=== PATIENT | female | born 1995 | race Two or more races ===

== ENCOUNTER 2023-11-14 19:19 | Inpatient (IN) | payer BC, OTHER ==
[~2023-11-14] VITALS: Ht 160 cm; Wt 93.4 kg
[2023-11-14] MEDS: cefTRIAXone 1GM/50ML D5W 50 ML IV ONE (00:45)
[2023-11-14] MEDS: MORPHINE SULFATE 4 MG/ML SYR/VIAL IV ONE ×2 (19:45→23:54)
[2023-11-14] MEDS: SODIUM CHLORIDE 0.9% 1,000 ML IVB ONE (19:45)
[2023-11-14] MEDS: ONDANSETRON HCL 4 MG/2 ML VIAL IV ONE (19:45)
[2023-11-14 20:19] LABS: Urine Bacteria None Seen /hpf (None Seen)
[2023-11-14 20:25] LABS: Basophils # (auto) 0.1 10 ^3/uL (0-0.2); Basophils % (auto) 0.5 % (0.0-2.0); Eosinophils # (auto) 0.1 10 ^3/uL (0-0.8); Eosinophils % (auto) 0.8 % (0.0-7.0); Hematocrit 44.9 % (36.0-46.0); Hemoglobin 15.4 g/dL (12.2-16.2); Lymphocytes # (auto) 1.3 10 ^3/uL (0.4-5.4); Lymphocytes % (auto) 9.2 % (10.0-50.0); Mean Corpuscular Hemoglobin 27.9 pg (28.0-32.0); Mean Corpuscular Hgb Conc. 34.4 g/dL (32.0-36.0); Mean Corpuscular Volume 81.2 fL (80.0-100.0); Monocytes # (auto) 0.5 10 ^3/uL (0-1.3); Monocytes % (auto) 3.6 % (0.0-12.0); Neutrophils % (auto) 85.9 % (37.0-80.0); Nucleated Red Blood Cells % 0.1 %; Red Blood Cells 5.53 10^6/uL (4.0-5.20); Red Cell Distribution Width 13.8 % (11.8-14.3)
[2023-11-14 20:32] LABS: Chloride 107 mmol/L (98-107); Potassium 3.8 mmol/L (3.5-5.1); Sodium 138 mmol/L (136-145)
[2023-11-14 20:32] LABS: Urine Blood 1+ /uL (Negative); Urine Clarity Clear (Clear); Urine Color Light-Yellow (Yellow); Urine Mucus FEW (None Seen); Urine Protein, UAD Negative (Negative); Urine Specific Gravity 1.015 (1.001-1.035); Urine Urobilinogen Normal (Negative); Urine WBC 4 /hpf (0 - 5); Urine pH 5.5 (5.0-9.0)
[2023-11-14 20:33] LABS: Anion Gap 4 (5-15); Calcium 9.3 mg/dL (8.5-10.1); Carbon Dioxide 27 mmol/L (20-30)
[2023-11-14 20:38] LABS: Glucose 99 mg/dL (74-106)
[2023-11-14 20:42] LABS: BUN/Creatinine Ratio 6.6 (10.0-20.0); Blood Urea Nitrogen < 5 mg/dL (9-23)
[2023-11-14] MEDS ORDERED: ALBUTEROL SULF 2.5 MG/0.5ML(0.5%) NEB SOLN NEB PRN (21:15)
[2023-11-14] MEDS ORDERED: ACETAMINOPHEN 325 MG TAB PO PRN ×2 (21:15)
[2023-11-14] MEDS ORDERED: MORPHINE SULFATE INJ 2 MG/ml SYRG IV PRN (21:15)
[2023-11-14 21:48] LABS: Alanine Aminotransferase 23 U/L (7-40); Aspartate Aminotransferase 20 U/L (13-40)
[2023-11-14 23:21] VITALS: BP 119/77; PULSE 108; RESP 14; TEMP 99.5; O2SAT 97
[2023-11-14] MEDS: SODIUM CHLORIDE 0.9% 1,000 ML IV SCH (23:39)
[2023-11-14] MEDS: metroNIDAZOLE 500MG/100ML 100 ML IV ONE (23:53)
[2023-11-14] MEDS: ONDANSETRON HCL 4 MG/2 ML VIAL IV PRN (23:53)
[2023-11-14] MEDS: PANTOPRAZOLE 40 MG/10 ML VIAL INJ IV ONE (23:53)
[2023-11-15] VITALS (10 sets, daily range): BP systolic 98–120; BP diastolic 45–67; PULSE 67–91; RESP 15–20; TEMP 98.1–98.9; O2SAT 95–100
[2023-11-15 06:01] LABS: Basophils # (auto) 0.1 10 ^3/uL (0-0.2); Basophils % (auto) 0.6 % (0.0-2.0); Eosinophils # (auto) 0.1 10 ^3/uL (0-0.8); Eosinophils % (auto) 0.8 % (0.0-7.0); Hematocrit 41.2 % (36.0-46.0); Hemoglobin 13.9 g/dL (12.2-16.2); Lymphocytes # (auto) 1.8 10 ^3/uL (0.4-5.4); Lymphocytes % (auto) 20.1 % (10.0-50.0); Mean Corpuscular Hemoglobin 27.8 pg (28.0-32.0); Mean Corpuscular Hgb Conc. 33.7 g/dL (32.0-36.0); Mean Corpuscular Volume 82.6 fL (80.0-100.0); Monocytes # (auto) 0.6 10 ^3/uL (0-1.3); Monocytes % (auto) 6.5 % (0.0-12.0); Neutrophils # (auto) 6.6 10 ^3/uL (1.6-8.6); Red Blood Cells 4.99 10^6/uL (4.0-5.20); Red Cell Distribution Width 13.7 % (11.8-14.3); White Blood Cell 9.1 10^3/uL (4.4-10.8)
[2023-11-15] MEDS: metroNIDAZOLE 500MG/100ML 100 ML IV SCH (06:10)
[2023-11-15] MEDS: HYDROcodone-ACET 5/325MG TAB PO PRN (06:16)
[2023-11-15 06:29] LABS: Alanine Aminotransferase 18 U/L (7-40); Alkaline Phosphatase 97 U/L (46-116); Anion Gap 9 (5-15); Aspartate Aminotransferase 17 U/L (13-40); Bilirubin, Total 0.7 mg/dL (0.2-1.0); Calcium 8.7 mg/dL (8.5-10.1); Carbon Dioxide 22 mmol/L (20-30); Chloride 108 mmol/L (98-107); Glucose 85 mg/dL (74-106); Potassium 3.4 mmol/L (3.5-5.1); Sodium 139 mmol/L (136-145); Total Protein 6.9 g/dL (5.7-8.2)
[2023-11-15 06:39] LABS: BUN/Creatinine Ratio 7.4 (10.0-20.0); Blood Urea Nitrogen < 5 mg/dL (9-23)
[2023-11-15] MEDS: PANTOPRAZOLE 40 MG/10 ML VIAL INJ IV SCH (09:27)
[2023-11-15 11:07] LABS: CRP High Sensitivity 4.84 mg/dL (<1.0)
[2023-11-15 13:42] LABS: Amphetamine Screen, Urine Neg (NEGATIVE); Barbiturate Scree,Urine Neg (NEGATIVE); Benzodiazephine Screen, Urine Neg (NEGATIVE)
[2023-11-15 13:43] LABS: Cannabinoid Screen, Urine Neg (NEGATIVE); Cocaine Screen, Urine Neg (NEGATIVE); Opiate Scree,Urine Pos (NEGATIVE); Phencyclidine Screen, Urine Neg (NEGATIVE)
[2023-11-15] MEDS: POTASSIUM CHL 20 Meq TABLET PO ONE (14:23)
[2023-11-15] MEDS: metroNIDAZOLE 500 MG TAB PO SCH (14:23)
[2023-11-15] MEDS: cefTRIAXone 1GM/50ML D5W 50 ML IV SCH (20:33)
[2023-11-15] MEDS: ACETAMINOPHEN 325 MG TAB PO PRN (21:15)
[2023-11-16] VITALS (9 sets, daily range): BP systolic 104–118; BP diastolic 41–70; PULSE 58–77; RESP 16–20; TEMP 97.2–98.4; O2SAT 95–98
[2023-11-16 06:32] LABS: Basophils # (auto) 0 10 ^3/uL (0-0.2); Basophils % (auto) 0.5 % (0.0-2.0); Eosinophils # (auto) 0.2 10 ^3/uL (0-0.8); Eosinophils % (auto) 3.2 % (0.0-7.0); Hemoglobin 13.8 g/dL (12.2-16.2); Lymphocytes # (auto) 2.8 10 ^3/uL (0.4-5.4); Lymphocytes % (auto) 36.1 % (10.0-50.0); Mean Corpuscular Hemoglobin 28.4 pg (28.0-32.0); Mean Corpuscular Hgb Conc. 34.5 g/dL (32.0-36.0); Mean Corpuscular Volume 82.2 fL (80.0-100.0); Monocytes # (auto) 0.9 10 ^3/uL (0-1.3); Monocytes % (auto) 11.5 % (0.0-12.0); Neutrophils # (auto) 3.8 10 ^3/uL (1.6-8.6); Neutrophils % (auto) 48.7 % (37.0-80.0); Nucleated Red Blood Cells % 0.3 %; Red Blood Cells 4.86 10^6/uL (4.0-5.20); Red Cell Distribution Width 13.8 % (11.8-14.3); White Blood Cell 7.7 10^3/uL (4.4-10.8)
[2023-11-16 06:44] LABS: Alanine Aminotransferase 24 U/L (7-40); Albumin 3.8 g/dL (3.2-4.8); Alkaline Phosphatase 88 U/L (46-116); Anion Gap 10 (5-15); Aspartate Aminotransferase 22 U/L (13-40); Calcium 9.3 mg/dL (8.7-10.4); Carbon Dioxide 23 mmol/L (20-30); Chloride 109 mmol/L (98-107); Glucose 75 mg/dL (74-106); Magnesium 2.1 mg/dL (1.6-2.6); Sodium 142 mmol/L (136-145)
[2023-11-16 06:45] LABS: Bilirubin, Total 0.4 mg/dL (0.2-1.0); Total Protein 6.8 g/dL (5.7-8.2)
[2023-11-16 07:09] LABS: BUN/Creatinine Ratio 7.1 (10.0-20.0); Blood Urea Nitrogen < 5 mg/dL (9-23)
[2023-11-16] MEDS ORDERED: MET500T PO (11:02)
[2023-11-16] MEDS ORDERED: CEPH250C PO (11:02)
== END 2023-11-16 14:10 | disposition home or self-care (01) | DRG 872 ==
LOC: ER 19:19 → OVERFLOW 21:07 → CENTRAL 11-15 00:45
PROVIDERS: ADMIT Internal Medicine Pulmonary Disease; ATTEND Internal Medicine Pulmonary Disease
DX: A41.9 Sepsis, unspecified organism (principal); K57.32 Diverticulitis of large intestine without perforation or abscess without bleeding; N39.0 Urinary tract infection, site not specified; E66.9 Obesity, unspecified; E87.6 Hypokalemia; J45.909 Unspecified asthma, uncomplicated; E78.5 Hyperlipidemia, unspecified; E88.89 Other specified metabolic disorders; K76.0 Fatty (change of) liver, not elsewhere classified; Z82.49 Family history of ischemic heart disease and other diseases of the circulatory system; Z83.3 Family history of diabetes mellitus; Z68.36 Body mass index [BMI] 36.0-36.9, adult
CPT/HCPCS: 36415; 74176; 80048; 80053; 80061; 80307; 81001; 83735; 84443; 84450; 84460; 84702; 85025; 86141; 87045; 87427; 87493; 96365; 96375; C9113; G0378; J2405; J3490